=== PATIENT | female | born 1955 | race Hispanic/Latino ===

== ENCOUNTER 2022-05-29 10:20 | Observation (INO) | payer OTHER ==
[2022-05-26 10:09] LABS: SARS-CoV-2 Antigen Rapid Res Negative (Negative)
[2022-05-26 10:29] LABS: Specific Gravity 1.007 (1.005-1.030); Urine Bilirubin NEGATIVE (Negative); Urine Blood Negative (Negative); Urine Clarity Clear (Clear); Urine Color Colorless (Yellow); Urine Glucose NEGATIVE (Negative); Urine Protein NEGATIVE (Negative); Urine Urobilinogen Normal (Normal); Urine pH 6.5 (5.0-7.0)
[2022-05-26 10:30] LABS: Absolute Lymphocytes (CBC) 1.7 K/uL (0.7-4.9); Hematocrit 37.3 % (36.0-45.0); Lymphocytes % 35.7 % (15.3-44.8); MCV 90.6 fL (80-100); MPV 8.3 fL (7.6-11.3); RBC Red Blood Cell Count 4.12 M/uL (3.86-4.86)
[2022-05-26 10:31] LABS: Protime INR 0.94
[2022-05-26 10:34] LABS: Potassium 4.2 mmol/L (3.5-5.1)
[2022-05-29] MEDS ORDERED: dexAMETHasone 10 MG/ML VIAL ONE (10:23)
[2022-05-29] MEDS ORDERED: propofoL 200 MG/20 ML VIAL IV ONE (10:23)
[2022-05-29] MEDS ORDERED: FENTANYL CITR 100 MCG/2 ML ONE (10:23)
[2022-05-29] MEDS ORDERED: VECURONIUM 10 MG/VIAL IV ONE ×2 (10:24→15:16)
[2022-05-29] MEDS ORDERED: LIDOCAINE 2% MPF 5 ML VIAL ONE (10:24)
[2022-05-29] MEDS ORDERED: NS 0.9% VIAL 10 ML ONE ×2 (10:24→15:15)
[2022-05-29] MEDS ORDERED: KETOROLAC 30 MG/ML INJ ONE (10:24)
[2022-05-29] MEDS ORDERED: ONDANSETRON 4 MG/2 ML VIAL ONE (10:25)
[2022-05-29] MEDS ORDERED: MIDAZOLAM HCL 2 MG/2 ML INJ ONE (10:26)
[2022-05-29] MEDS ORDERED: Ringers Lactate 1,000 ML IV ONE ×3 (10:39→13:26)
[2022-05-29] MEDS ORDERED: SCOPOLAMINE HYDROBROMIDE PATCH TD ONE (10:40)
[2022-05-29] MEDS ORDERED: CEFAZOLIN SODIUM 2 GM/VIAL ONE (10:44)
[2022-05-29] MEDS ORDERED: NS 0.9% VIAL 20 ML ONE ×2 (11:02→12:39)
[2022-05-29] MEDS ORDERED: CEFAZOLIN SODIUM 1 GM/VIAL ONE (11:02)
[2022-05-29] MEDS ORDERED: BUPIVACAINE 0.25% PF 30 ML VIAL ONE (11:03)
[2022-05-29] MEDS ORDERED: NA CHLORIDE 0.9% 100 ML IV ONE (11:03)
[2022-05-29] MEDS ORDERED: NA CHLORIDE 0.9% 1,000 ML ONE (11:03)
[2022-05-29] MEDS ORDERED: VASOPRESSIN 20 UNIT/ML VIAL ONE (11:04)
[2022-05-29] MEDS ORDERED: GLYCOPYRROLATE 0.2 MG/ML SYR ONE (16:49)
[2022-05-29] MEDS ORDERED: NEOSTIGMINE 1 MG/ML -5 ML ONE (16:50)
[2022-05-29] MEDS ORDERED: ACETAMINOPHEN 500 MG TAB PO PRN (16:58)
[2022-05-29] MEDS ORDERED: PROMETHAZINE INJ 25 MG/ML AMP IV PRN (16:58)
[2022-05-29] MEDS ORDERED: ONDANSETRON 4 MG/2 ML VIAL IV PRN (16:58)
[2022-05-29] MEDS ORDERED: MEPERIDINE HCL 25 MG/ML SYR IV PRN (16:58)
[2022-05-29] MEDS ORDERED: HOME MED 1 EA UNK (Estradiol [Estrace] 42.5 GM Cream.Appl) VG SCH (17:00)
[2022-05-29] MEDS ORDERED: DRISDOL (VITAMIN D=ERGOCALCIFEROL) 50000 UNIT CAP PO SCH (17:00)
--- NOTE | 2022-05-29 17:04 | P.BOP ---
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
--- OUTSIDE RECORDS SUMMARY | 2022-05-29 17:22 | XMS REPORT | Continuity of Care Document ---
:1955 Author Organization [facility] t Address [address] [place] [address] Care Team Providers Name Role Phone MICHELLE LEDEZMA Primary Care Physician Unavailable JUDY REEVES Attending Clinician Unavailable CALLY GARCIA Attending Clinician Unavailable Cally Tolbert Attending Clinician Pob, [facility] Main Attending Clinician Unavailable Janel Ledbetter MD Attending Clinician JANEL LEDBETTER Attending Clinician Unavailable Doctor Unassigned, [place] Attending Clinician Unavailable Miguel Temple MD Attending Clinician MIGUEL TEMPLE Attending Clinician Unavailable MESERET LOU Attending Clinician Unavailable Meseret Lou NP Attending Clinician 2, [facility] Attending Clinician Unavailable Unknown, Attending Attending Clinician Unavailable UNKNOWN, ATTENDING Attending Clinician Unavailable RADIOLOGY Attending Clinician Unavailable Radiology Attending Clinician Unavailable Judy Reeves MD Attending Clinician Michelle Ledezma MD Attending Clinician Lab, [facility] Fam Pob I Attending Clinician Unavailable Kylie Dow Attending Clinician KYLIE MONTOYA Attending Clinician Unavailable DENYS, JAMA M Attending Clinician Unavailable MAGI HOWELL Attending Clinician Unavailable 1, [facility] Attending Clinician Unavailable Wilfrid MADDOX, Kayden Morin Attending Clinician MESERET LOU Admitting Clinician Unavailable DONALDO RITTER Admitting Clinician Unavailable MAGI HOWELL Admitting Clinician Unavailable Payers Payer Name Policy Type Policy Number Effective Date Expiration Date Rosa martinez [facility] [id number] 2020 [facility] 00:00:00 PPO [employer] MEDICARE [id number] 2019 00:00:00 Problems Condition Condition Condition Status Onset Resolution Last Treating Co mments Source Name Details Category Date Date Treatment Clinician Date Left Left Disease Active Univers axillary axillary 5-30 ity of swelling swelling 00:00: [place] 00 Medical Branch Change in Change in Disease Active Uni vers nail nail 5-30 [place] 00:[place] 00 [facility] [place] Chronic Chronic Disease Active Univers left left 5-30 ity of shoulder shoulder 00:00: [place] pain pain 00 Medical Branch Anasarca Anasarca Disease Active Unive rs 1-17 ity of 00:00: [place] [facility] Protein in Protein in Disease Active 2015-08 U nivers urine urine 0-19 ity of 00:00: [place] 00 Medical Branch No known No known Disease Metho di active active st problems problems Hospit a l Allergies, Adverse Reactions, Alerts Allergy Allergy Status Severity Reaction(s) Onset Inactive Treating Comm ents Source Name Type Date Date Clinician Codeine Propensi Active Nausea Univers ty to and/or 08 ity of adverse Vomiting 00:00: [place] reaction Medical s Branch Hydrocod Propensi Active Nausea Univer s one ty to and/or 808 ity of adverse Vomiting 00:00: [place] reaction 00 Medical s Branch CODEINE DRUG Active N/V Univers INGREDI 8-08 ity of 00:00: [place] 00 Medical Branch HYDROCOD DRUG Active N/V Univers ONE INGREDI 8-08 ity of 00:00: [place] 00 Medical Branch Codeine Propensi Active GI Methodi ty to Intolerance 08 st adverse 00:00: [facility]osp[facility] reaction 00 l s to drug Hydrocod Propensi Active GI Method i one ty to Intolerance 8-08 st adverse 00:00: Hospita reaction 00 l s to drug Family History Family Member Diagnosis Comments Start Date Stop Date Source Family member Colon cancer [facility] Family member Colon polyps [facility] Social History Social Habit Start Date Stop Date Quantity Comments Source Exposure to 2022-05-07 2022-05-17 Not sure [facility] SARS-CoV-2 00:00:00 16:16:00 [place] [facility] (event) [place] Alcohol intake 2022-05-17 2022-05-17 [facility] 00:00:00 00:00:00 non-drinker of [facility] alcohol (finding) [place] Tobacco use and 2016-02-08 2016-02-08 Smokeless tobacco Un iversity of exposure 00:00:00 00:00:00 non-user [facility] Sex Assigned At [address] [facility] 00:00:00 00:00:00 Smoking Status Start Date Stop Date Source Never smoked tobacco [facility] Medications Ordered Filled Start Stop Current Ordering Indication Dosage Frequency Signature Comments Components Source Medication Medication Date Date Medication? Clinician (SIG) Name Name azelastine 2021-08 Yes [id number] 1{spray Use 1 Univers 137 mcg 0-05 } [place] in ity of (0.1 %) 00:00: each [place] nasal spray 00 nostril in [facility] morning and 1 [place] in the evening. Use in each nostril as directed azelastine 2021-08 Yes [id number] 1{spray Use 1 Univers 137 mcg 0-05 } [place] in ity of (0.1 %) 00:00: each [place] nasal spray 00 nostril in [facility] morning and 1 [place] in the evening. Use in each nostril as directed iopamidol 2021- No [id number] 60mL 60 mL, U nivers (ISOVUE 04-16 Intravenou ity o f 370-500 mL) 08:45: 08:45 s, ONCE, 1 [place] injection 00 :00 dose, On Medica l 60 mL 04/16/22 Branch at 0345, Routine dicyclomine 2021- No 20mg 20 mg, Uni vers (BENTYL) 04-16 Intramuscu ity of injection 07:15: 06:51 [place], ONCE, [place] 20 mg 00 :00 1 dose, On Medical 04/16/22 Branch at 0215, Routine NaCl 0.9% No 1000mL at 999 Uni vers (NS) bolus 04-1604 mL/hr, ity of infusion 07:15: 08:13 1,000 mL, Mikal as 1,000 mL 00 :00 IV Medical Infusion, Branch ONCE, 1 dose, On 04/16/22 at 0215, MELANIA ondansetron 2021- No 4mg 4 mg, Slow Univers (ZOFRAN 04-16 IV Push, ity of (PF)) 06:45: 06:53 ONCE, 1 [place] injection 4 00 :00 dose, On Medi stephania mg [place] 04/16/22 Branch at 0145, MELANIA ondansetron 2021-0 Yes [id number] 4mg Take 1 Univers (ZOFRAN) 4 9-04 tablet by ity of mg tablet 00:00: mouth [place] 00 every 8 Medical (eight) Branch hours as needed for Nausea and Vomiting (N/V). ondansetron 2021-0 Yes [id number] 4mg Take 1 Univers (ZOFRAN) 4 9-04 tablet by ity of mg tablet 00:00: mouth [place] 00 every 8 Medical (eight) Branch hours as needed for Nausea and Vomiting (N/V). ondansetron 2-0 Yes [id number] 4mg Take 1 Univers (ZOFRAN) 4 9-04 tablet by ity of mg tablet 00:00: mouth [place] 00 every 8 Medical (eight) Branch hours as needed for Nausea and Vomiting (N/V). ondansetron 2-0 Yes [id number] 4mg Take 1 Univers (ZOFRAN) 4 9-04 tablet by ity of mg tablet 00:00: mouth [place] 00 every 8 Medical (eight) Branch hours as needed for Nausea and Vomiting (N/V). ondansetron 2022-0 Yes [id number] 4mg Take 1 Univers (ZOFRAN) 4 9-04 tablet by ity of mg tablet 00:00: mouth [place] 00 every 8 Medical (eight) Branch hours as needed for Nausea and Vomiting (N/V). ondansetron 2022-0 Yes [id number] 4mg Take 1 Univers (ZOFRAN) 4 -04 tablet by ity of mg tablet 00:00: mouth [place] 00 every 8 Medical (eight) Branch hours as needed for Nausea and Vomiting (N/V). omeprazole 2021- Yes [id number] 40mg Take 2 Univers 20 mg 9- 10-05 capsules ity of capsule 00:00: 04:59 by mouth [place] 00 :00 in the Medical morning Branch for 30 days. omeprazole 2021- Yes [id number] 40mg Take 2 Univers 20 mg 9-04 10-05 capsules ity of capsule 00:00: 04:59 by mouth [place] 00 :00 in the Medical morning Branch for 30 days. omeprazole 2021- Yes [id number] 40mg Take 2 Univers 20 mg 9-04 10-05 capsules ity of capsule 00:00: 04:59 by mouth [place] 00 :00 in the Medical morning Branch for 30 days. cefdinir 2021- Yes [id number] 300mg Take 1 U nivers 300 mg 04-16 09-15 capsule by ity of capsule 00:00: 04:59 mouth [place] 00 :00 every 12 Medical (twelve) Branch hours for 10 days. finerenone Yes Take by [facility] ers (KERENDIA 7-12 mouth. ity of ORAL) 13:05: [place] [address] Medical Branch cycloSPORIN Yes 1[drp] Place 1 U nivers E 0.05 % 7-12 Drop in ity of drops 13:05: left eye [place] 18 every 12 Medical (twelve) Branch hours. finerenone 2021- Yes Take by [facility] ers (KERENDIA 7-12 mouth. ity of ORAL) 13:05: [place] [address] Medical Branch cycloSPORIN 0 Yes 1[drp] Place 1 U nivers E 0.05 % 7-12 Drop in ity of drops 13:05: left eye [place] 18 every 12 Medical (twelve) Branch hours. finerenone 2021-0 Yes Take by [facility] ers (KERENDIA 7-12 mouth. ity of ORAL) 13:05: [place] [address] Medical Branch cycloSPORIN Yes 1[drp] Place 1 U nivers E 0.05 % 7-12 Drop in ity of drops 13:05: left eye [place] 18 every 12 Medical (twelve) Branch hours. finerenone 2021-0 Yes Take by Univ ers (KERENDIA 7-12 mouth. ity of ORAL) 13:05: [place] [address] Medical Branch cycloSPORIN 2021-0 Yes 1[drp] Place 1 U nivers E 0.05 % 7-12 Drop in ity of drops 13:05: left eye [place] 18 every 12 Medical (twelve) Branch hours. finerenone 2021-0 Yes Take by Univ ers (KERENDIA 7-12 mouth. ity of ORAL) 13:05: [place] [address] Medical Branch cycloSPORIN 2021-0 Yes 1[drp] Place 1 U nivers E 0.05 % 7-12 Drop in ity of drops 13:05: left eye [place] 18 every 12 Medical (twelve) Branch hours. finerenone 2021-0 Yes Take by [facility] ers (KERENDIA 7-12 mouth. ity of ORAL) 13:05: [place] [address] Medical Branch cycloSPORIN 2021-0 Yes 1[drp] Place 1 U nivers E 0.05 % 7-12 Drop in ity of drops 13:05: left eye [place] 18 every 12 Medical (twelve) Branch hours. finerenone 2021-0 Yes Take by [facility] ers (KERENDIA 7-12 mouth. ity of ORAL) 13:05: [place] [address] Medical Branch cycloSPORIN 2021-0 Yes 1[drp] Place 1 U nivers E 0.05 % 7-12 Drop in ity of drops 13:05: left eye [place] 18 every 12 Medical (twelve) Branch hours. finerenone 2021-0 Yes Take by Univ ers (KERENDIA 7-12 mouth. ity of ORAL) 13:05: [place] [address] Medical Branch cycloSPORIN 2021-0 Yes 1[drp] Place 1 U nivers E 0.05 % 7-12 Drop in ity of drops 13:05: left eye [place] 18 every 12 Medical (twelve) Branch hours. finerenone 2021-0 Yes Take by Univ ers (KERENDIA 7-12 mouth. ity of ORAL) 13:05: [place] [address] Medical Branch cycloSPORIN 2021-0 Yes 1[drp] Place 1 U nivers E 0.05 % 7-12 Drop in ity of drops 13:05: left eye [place] [address] every 12 Medical (twelve) Branch hours. finerenone 2022-0 Yes Take by [facility] ers (KERENDIA 7-12 mouth. ity of ORAL) 13:05: [place] [address] Medical Branch cycloSPORIN 2021-0 Yes 1[drp] Place 1 U nivers E 0.05 % 7-12 Drop in ity of drops 13:05: left eye [place] 18 every 12 Medical (twelve) Branch hours. finerenone 2021-0 Yes Take by [facility] ers (KERENDIA 7-12 mouth. ity of ORAL) 13:05: [place] [address] Medical Branch cycloSPORIN 2021-0 Yes 1[drp] Place 1 U nivers E 0.05 % 7-12 Drop in ity of drops 13:05: left eye [place] 18 every 12 Medical (twelve) Branch hours. finerenone 2021-0 Yes Take by [facility] ers (KERENDIA 7-12 mouth. ity of ORAL) 13:05: [place] [address] Medical Branch cycloSPORIN 2021-0 Yes 1[drp] Place 1 U nivers E 0.05 % 7-12 Drop in ity of drops 13:05: left eye [place] 18 every 12 Medical (twelve) Branch hours. finerenone 2021-0 Yes Take by [facility] ers (KERENDIA 7-12 mouth. ity of ORAL) 13:05: [place] [address] Medical Branch cycloSPORIN 2021-0 Yes 1[drp] Place 1 U nivers E 0.05 % 7-12 Drop in ity of drops 13:05: left eye [place] 18 every 12 Medical (twelve) Branch hours. finerenone 2021-0 Yes Take by [facility] ers (KERENDIA 7-12 mouth. ity of ORAL) 13:05: [place] [address] Medical Branch cycloSPORIN 2021-0 Yes 1[drp] Place 1 U nivers E 0.05 % 7-12 Drop in ity of drops 13:05: left eye [place] 18 every 12 Medical (twelve) Branch hours. pravastatin 2021-0 Yes [id number] 10mg Take 1 Univers 10 mg 4-05 tablet by ity of tablet 00:00: mouth at [place] 00 bedtime. Medical Branch pravastatin 2-0 Yes [id number] 10mg Take 1 Univers 10 mg 4-05 tablet by ity of tablet 00:00: mouth at [place] 00 bedtime. Medical Branch pravastatin 2-0 Yes [id number] 10mg Take 1 Univers 10 mg 4-05 tablet by ity of tablet 00:00: mouth at [place] [address] bedtime. Medical Branch pravastatin 2021-0 Yes [id number] 10mg Take 1 Univers 10 mg 4-05 tablet by ity of tablet 00:00: mouth at [place] [address] bedtime. Medical Branch pravastatin 2021-0 Yes [id number] 10mg Take 1 Univers 10 mg 4-05 tablet by ity of tablet 00:00: mouth at [place] [address] bedtime. [facility] Branch pravastatin 2021-0 Yes [id number] 10mg Take 1 Univers 10 mg 4-05 tablet by ity of tablet 00:00: mouth at [place] [address] bedtime. Medical Branch pravastatin 2021-0 Yes [id number] 10mg Take 1 Univers 10 mg 4-05 tablet by ity of tablet 00:00: mouth at [place] [address] bedtime. [facility] Branch pravastatin 0 Yes [id number] 10mg Take 1 Univers 10 mg 4-05 tablet by ity of tablet 00:00: mouth at [place] [address] bedtime. [facility] Branch pravastatin 0 Yes [id number] 10mg Take 1 Univers 10 mg 4-05 tablet by ity of tablet 00:00: mouth at [place] [address] bedtime. Medical Branch pravastatin 0 Yes [id number] 10mg Take 1 Univers 10 mg 4-05 tablet by ity of tablet 00:00: mouth at [place] [address] bedtime. [facility] Branch pravastatin 0 Yes [id number] 10mg Take 1 Univers 10 mg 4-05 tablet by ity of tablet 00:00: mouth at [place] [address] bedtime. [facility] Branch pravastatin 2021-0 Yes [id number] 10mg Take 1 Univers 10 mg 4-05 tablet by ity of tablet 00:00: mouth at [place] [address] bedtime. [facility] Branch pravastatin 2021-0 Yes [id number] 10mg Take 1 Univers 10 mg 4-05 tablet by ity of tablet 00:00: mouth at [place] [address] bedtime. [facility] Branch pravastatin 2021-0 Yes [id number] 10mg Take 1 Univers 10 mg 4-05 tablet by ity of tablet 00:00: mouth at [place] [address] bedtime. [facility] Branch ergocalcife 2020-0 Yes [id number] Univ ers rol, 7-06 50,000 ity of vitamin d2, 08:58: Units by [place] (VITAMIN 13 mouth once Medic al D2) 1,250 every Branch mcg (50,000 month. unit) capsule ergocalcife 2020-0 Yes [id number] Take [place] [facility], 7- 50,000 ity of vitamin d2, 08:58: Units by [place] (VITAMIN 13 mouth once Medic al D2) 1,250 every Branch mcg (50,000 month. unit) capsule ergocalcife 2020-0 Yes [id number] Take [facility], 7- 50,000 ity of vitamin d2, 08:58: Units by [place] (VITAMIN 13 mouth once Medic al D2) 1,250 every Branch mcg (50,000 month. unit) capsule ergocalcife 2020-0 Yes [id number] Take [place] [facility], 7- 50,000 ity of vitamin d2, 08:58: Units by [place] (VITAMIN 13 mouth once Medic al D2) 1,250 every Branch mcg (50,000 month. unit) capsule ergocalcife 2020-0 Yes [id number] Take [facility], 7- 50,000 ity of vitamin d2, 08:58: Units by [place] (VITAMIN 13 mouth once Medic al D2) 1,250 every Branch mcg (50,000 month. unit) capsule ergocalcife 2020-0 Yes [id number] Take [facility], 7- 50,000 ity of vitamin d2, 08:58: Units by [place] (VITAMIN 13 mouth once Medic al D2) 1,250 every Branch mcg (50,000 month. unit) capsule ergocalcife 2020-0 Yes [id number] Take [place] [facility], 7- 50,000 ity of vitamin d2, 08:58: Units by [place] (VITAMIN 13 mouth once Medic al D2) 1,250 every Branch mcg (50,000 month. unit) capsule ergocalcife 2020-0 Yes [id number] Take [place] [facility], 7- 50,000 ity of vitamin d2, 08:58: Units by [place] (VITAMIN 13 mouth once Medic al D2) 1,250 every Branch mcg (50,000 month. unit) capsule ergocalcife 2020-0 Yes [id number] Take [place] [facility], 7- 50,000 ity of vitamin d2, 08:58: Units by [place] (VITAMIN 13 mouth once Medic al D2) 1,250 every Branch mcg (50,000 month. unit) capsule ergocalcife 2020-0 Yes [id number] Take [facility], 7- 50,000 ity of vitamin d2, 08:58: Units by [place] (VITAMIN 13 mouth once Medic al D2) 1,250 every Branch mcg (50,000 month. unit) capsule ergocalcife 2020-0 Yes [id number] Take [facility], 7- 50,000 ity of vitamin d2, 08:58: Units by [place] (VITAMIN 13 mouth once Medic al D2) 1,250 every Branch mcg (50,000 month. unit) capsule ergocalcife 2020-0 Yes [id number] Take [place] [facility], 7- 50,000 ity of vitamin d2, 08:58: Units by [place] (VITAMIN 13 mouth once Medic al D2) 1,250 every Branch mcg (50,000 month. unit) capsule ergocalcife 0 Yes [id number] Take [place] [facility], 7- 50,000 ity of vitamin d2, 08:58: Units by [place] (VITAMIN 13 mouth once Medic al D2) 1,250 every Branch mcg (50,000 month. unit) capsule ergocalcife 0 Yes [id number] Take [place] [facility], 7- 50,000 ity of vitamin d2, 08:58: Units by [place] (VITAMIN 13 mouth once Medic al D2) 1,250 every Branch mcg (50,000 month. unit) capsule famotidine 2019-0 Yes 20mg QD Take 20 mg M ethodi (PEPCID) 20 2-[address] MG tablet 11:00: daily. Hospit a 37 l aspirin 2020-0 Yes 81mg QD Take 81 mg Meth lanny (ECOTRIN) 2-[address] 81 MG 11:00: daily. Hospita enteric 37 l coated tablet predniSONE 2020-0 Yes 25mg Q2D Take 25 mg M ethodi (DELTASONE) 2-[address] 20 mg 11:00: every Hospita tablet 37 other day. l ergocalcife 2018- Yes [id number] Take Meth lanny rol 2-26 50,[address] (VITAMIN 00:00: Units by Hospi ta D2) 50,000 00 mouth. l unit capsule aspirin 2019-0 Yes 81mg Take 81 mg Univ ers (ASPIRIN 8-08 by mouth ity of LOW DOSE) 13:51: daily. [place] 81 mg EC 50 Medical tablet Branch famotidine 2019-0 Yes 20mg Take 20 mg U nivers (PEPCID AC) 8-08 by mouth ity of 20 mg 13:51: once now. [place] tablet 50 Medical Branch aspirin 2019-0 Yes 81mg Take 81 mg Univ ers (ASPIRIN 8-08 by mouth ity of LOW DOSE) 13:51: daily. [place] 81 mg EC 50 Medical tablet Branch famotidine 2019-0 Yes 20mg Take 20 mg U nivers (PEPCID AC) 8-08 by mouth ity of 20 mg 13:51: once now. [place] tablet 50 Medical Branch aspirin 2019-0 Yes 81mg Take 81 mg Univ ers (ASPIRIN 8-08 by mouth ity of LOW DOSE) 13:51: daily. [place] 81 mg EC 50 Medical tablet Branch famotidine 2019-0 Yes 20mg Take 20 mg U nivers (PEPCID AC) 8-08 by mouth ity of 20 mg 13:51: once now. [place] tablet 50 Medical Branch aspirin 2019-0 Yes 81mg Take 81 mg Univ ers (ASPIRIN 8-08 by mouth ity of LOW DOSE) 13:51: daily. [place] 81 mg EC 50 Medical tablet Branch famotidine 2019-0 Yes 20mg Take 20 mg U nivers (PEPCID AC) 8-08 by mouth ity of 20 mg 13:51: once now. [place] tablet 50 Medical Branch aspirin 2019-0 Yes 81mg Take 81 mg Univ ers (ASPIRIN 8-08 by mouth ity of LOW DOSE) 13:51: daily. [place] 81 mg EC 50 Medical tablet Branch famotidine 2019-0 Yes 20mg Take 20 mg U nivers (PEPCID AC) 8-08 by mouth ity of 20 mg 13:51: once now. [place] tablet 50 Medical Branch aspirin 2019-0 Yes 81mg Take 81 mg Univ ers (ASPIRIN 8-08 by mouth ity of LOW DOSE) 13:51: daily. [place] 81 mg EC 50 Medical tablet Branch famotidine 2019-0 Yes 20mg Take 20 mg U nivers (PEPCID AC) 8-08 by mouth ity of 20 mg 13:51: once now. [place] tablet 50 Medical Branch aspirin 2019-0 Yes 81mg Take 81 mg Univ ers (ASPIRIN 8-08 by mouth ity of LOW DOSE) 13:51: daily. [place] 81 mg EC 50 Medical tablet Branch famotidine 2019-0 Yes 20mg Take 20 mg U nivers (PEPCID AC) 8-08 by mouth ity of 20 mg 13:51: once now. [place] tablet 50 Medical Branch aspirin 2019-0 Yes 81mg Take 81 mg Univ ers (ASPIRIN 8-08 by mouth ity of LOW DOSE) 13:51: daily. [place] 81 mg EC 50 Medical tablet Branch famotidine 2019-0 Yes 20mg Take 20 mg U nivers (PEPCID AC) 8-08 by mouth ity of 20 mg 13:51: once now. [place] tablet 50 Medical Branch aspirin 2019-0 Yes 81mg Take 81 mg Univ ers (ASPIRIN 8-08 by mouth ity of LOW DOSE) 13:51: daily. [place] 81 mg EC 50 Medical tablet Branch famotidine 2019-0 Yes 20mg Take 20 mg U nivers (PEPCID AC) 8-08 by mouth ity of 20 mg 13:51: once now. [place] tablet 50 Medical Branch aspirin 2019-0 Yes 81mg Take 81 mg Univ ers (ASPIRIN 8-08 by mouth ity of LOW DOSE) 13:51: daily. [place] 81 mg EC 50 Medical tablet Branch famotidine 2019-0 Yes 20mg Take 20 mg U nivers (PEPCID AC) 8-08 by mouth ity of 20 mg 13:51: once now. [place] tablet 50 Medical Branch aspirin 2019-0 Yes 81mg Take 81 mg Univ ers (ASPIRIN 8-08 by mouth ity of LOW DOSE) 13:51: daily. [place] 81 mg EC 50 Medical tablet Branch famotidine 2019-0 Yes 20mg Take 20 mg U nivers (PEPCID AC) 8-08 by mouth ity of 20 mg 13:51: once now. [place] tablet 50 Medical Branch aspirin 2019-0 Yes 81mg Take 81 mg Univ ers (ASPIRIN 8-08 by mouth ity of LOW DOSE) 13:51: daily. [place] 81 mg EC 50 Medical tablet Branch famotidine 2019-0 Yes 20mg Take 20 mg U nivers (PEPCID AC) 8-08 by mouth ity of 20 mg 13:51: once now. [place] tablet 50 Medical Branch aspirin 2019-0 Yes 81mg Take 81 mg Univ ers (ASPIRIN 8-08 by mouth ity of LOW DOSE) 13:51: daily. [place] 81 mg EC 50 Medical tablet Branch famotidine 2019-0 Yes 20mg Take 20 mg U nivers (PEPCID AC) 8-08 by mouth ity of 20 mg 13:51: once now. [place] tablet 50 Medical Branch aspirin 2019-0 Yes 81mg Take 81 mg Univ ers (ASPIRIN 8-08 by mouth ity of LOW DOSE) 13:51: daily. [place] 81 mg EC 50 Medical tablet Branch famotidine 2019-0 Yes 20mg Take 20 mg U nivers (PEPCID AC) 8-08 by mouth ity of 20 mg 13:51: once now. [place] tablet 50 Medical Branch Immunizations Ordered Filled Immunization Date Status Comments [facility] e Immunization Name Name SARS-COV-2 COVID-19 2020-10-12 Completed Unive rsity of MODERNA VACCINE 00:00:00 [facility] ical Branch SARS-COV-2 COVID-19 2020-10-12 Completed Unive rsity of MODERNA VACCINE 00:00:00 [facility] ical Branch SARS-COV-2 COVID-19 2020-10-12 Completed Unive rsity of MODERNA VACCINE 00:00:00 [facility] ical Branch SARS-COV-2 COVID-19 2020-10-12 Completed Unive rsity of MODERNA VACCINE 00:00:00 [facility] ical Branch SARS-COV-2 COVID-19 2020-10-12 Completed Unive rsity of MODERNA 12+ YRS 00:00:00 [facility] ical VACCINE Branch SARS-COV-2 COVID-19 2020-10-12 Completed Unive rsity of MODERNA 12+ YRS 00:00:00 [facility] ical VACCINE Branch SARS-COV-2 COVID-19 2020-10-12 Completed Unive rsity of MODERNA 12+ YRS 00:00:00 [place] Med ical VACCINE Branch SARS-COV-2 COVID-19 2020-10-12 Completed Unive rsity of MODERNA 12+ YRS 00:00:00 [facility] ical VACCINE Branch SARS-COV-2 COVID-19 2020-10-12 Completed Unive rsity of MODERNA 12+ YRS 00:00:00 [facility] ical VACCINE Branch SARS-COV-2 COVID-19 2020-10-12 Completed Unive rsity of MODERNA 12+ YRS 00:00:00 [place] Med ical VACCINE Branch SARS-COV-2 COVID-19 2020-10-12 Completed Unive rsity of MODERNA VACCINE 00:00:00 [place] Med ical Branch SARS-COV-2 COVID-19 2020-10-12 Completed Unive rsity of MODERNA VACCINE 00:00:00 [place] Med ical Branch SARS-COV-2 COVID-19 2020-10-12 Completed Unive rsity of MODERNA VACCINE 00:00:00 [place] Med ical Branch SARS-COV-2 COVID-19 2020-10-12 Completed Unive rsity of MODERNA VACCINE 00:00:00 [place] Med ical Branch SARS-COV-2 COVID-19 2020-09-14 Completed Unive rsity of MODERNA VACCINE 00:00:00 [place] Med ical Branch SARS-COV-2 COVID-19 2020-09-14 Completed Unive rsity of MODERNA VACCINE 00:00:00 [place] Med ical Branch SARS-COV-2 COVID-19 2020-09-14 Completed Unive rsity of MODERNA VACCINE 00:00:00 [place] Med ical Branch SARS-COV-2 COVID-19 2020-09-14 Completed Unive rsity of MODERNA VACCINE 00:00:00 [place] Med ical Branch SARS-COV-2 COVID-19 2020-09-14 Completed Unive rsity of MODERNA 12+ YRS 00:00:00 [place] Med ical VACCINE Branch SARS-COV-2 COVID-19 2020-09-14 Completed Unive rsity of MODERNA 12+ YRS 00:00:00 [place] Med ical VACCINE Branch SARS-COV-2 COVID-19 2020-09-14 Completed Unive rsity of MODERNA 12+ YRS 00:00:00 [place] Med ical VACCINE Branch SARS-COV-2 COVID-19 2020-09-14 Completed Unive rsity of MODERNA 12+ YRS 00:00:00 [place] Med ical VACCINE Branch SARS-COV-2 COVID-19 2020-09-14 Completed Unive rsity of MODERNA 12+ YRS 00:00:00 [place] Med ical VACCINE Branch SARS-COV-2 COVID-19 2020-09-14 Completed Unive rsity of MODERNA 12+ YRS 00:00:00 [facility] ical VACCINE Branch SARS-COV-2 COVID-19 2020-09-14 Completed Unive rsity of MODER[place] VACCINE 00:00:00 [place] [facility] ical Branch SARS-COV-2 COVID-19 2020-09-14 Completed Unive rsity of MODERNA VACCINE 00:00:00 [facility] ical Branch SARS-COV-2 COVID-19 2020-09-14 Completed Unive rsity of [place]ERNA VACCINE 00:00:00 [facility] ical Branch SARS-COV-2 COVID-19 2020-09-14 Completed Unive rsity of MODERNA VACCINE 00:00:00 [facility] Vital Signs Vital Name Observation Time Observation Value Comments Source Systolic blood 2022-05-17 21:26:00 114 mm[Hg] Univer sity of pressure [facility] Diastolic blood 2022-05-17 21:26:00 69 mm[Hg] Unive rsity of pressure [facility] Heart rate 2022-05-17 21:26:00 80 /min [facility] Body temperature 2022-05-17 21:26:00 36.61 Sheila [facility] Body height 2022-05-17 21:26:00 157.5 cm [facility] Body weight 2022-05-17 21:26:00 56.11 kg [facility] BMI 2022-05-17 21:26:00 22.63 kg/m2 [facility] Oxygen saturation in 2022-05-17 21:26:00 97 /min [facility] Arterial blood by [facility] Pulse oximetry Branch Systolic blood 2022-04-16 09:14:00 116 mm[Hg] Univer sity of pressure [facility] Diastolic blood 2022-04-16 09:14:00 68 mm[Hg] Unive rsity of pressure [facility] Heart rate 2022-04-16 09:14:00 90 /min Universi ty [facility] Body temperature 2022-04-16 09:14:00 36.89 Sheila [facility] Respiratory rate 2022-04-16 09:14:00 15 /min [facility] Oxygen saturation in 2022-04-16 09:14:00 100 /min University of Arterial blood by [facility] Pulse oximetry Branch Body height 2022-04-16 06:13:00 157.5 cm Universi ty [facility] Body weight 2022-04-16 06:13:00 57.153 kg Universi ty [facility] BMI 2022-04-16 06:13:00 23.05 kg/m2 Universi ty [facility] Systolic blood 2022-02-21 18:07:00 122 mm[Hg] Univer sity of pressure [facility] Diastolic blood 2022-02-21 18:07:00 57 mm[Hg] Unive rsity [facility] Heart rate 2022-02-21 18:07:00 71 /min [facility] Body temperature 2022-02-21 18:07:00 36.94 Sheila [facility] Respiratory rate 2022-02-21 18:07:00 16 /min Univ [facility] Body height 2022-02-21 18:07:00 157.5 cm Universi [facility] Body weight 2022-02-21 18:07:00 57.335 kg Universi ty [facility] BMI 2022-02-21 18:07:00 23.12 kg/m2 [facility] Oxygen saturation in 2022-02-21 18:07:00 98 /min [facility] Arterial blood by [facility] Pulse oximetry [place] Procedures Procedure Date / Time Performed Performing Clinician Sour e PHYSICIAN ORDERS 2022-05-10 05:01:00 Doctor Unassigned, No Unive [facility] Name [facility] CT ABDOMEN PELVIS W 2022-04-16 07:53:16 Meseret Lou [facility] CONTRAST [facility] XR CHEST 1 VW 2022-04-16 07:33:34 Meseret Lou [facility] LIPASE 2022-04-16 06:44:00 Meseret Lou [facility] TROPONIN I 2022-04-16 06:44:00 Meseret Lou [facility] COMP. METABOLIC PANEL 2022-04-16 06:44:00 Meseret Lou Unive [facility] ([id number]) [facility] CBC WITH DIFF 2022-04-16 06:44:00 Meseret Lou [facility] URINALYSIS 2022-04-16 06:44:00 Meseret Lou [facility] N-TERMINAL PRO-BNP 2022-04-16 06:44:00 [facility] Branch COVID-19 (ID NOW RAPID 2022-04-16 06:44:00 Meseret Lou [facility] TESTING) Medical Branch NOTICE OF PRIVACY 2022-04-16 06:11:04 Doctor Unassigned, No Univ ersity [facility] PRACTICES Name Medical Branch CONSENT/REFUSAL FOR 2022-04-16 06:09:59 Doctor Unassigned, No [facility] Name Medical Branch TREATMENT PHYSICIAN ORDERS 2022-03-22 05:01:00 Doctor Unassigned, No [facility] Branch CONSENT/REFUSAL FOR 2022-03-01 15:45:28 Doctor Unassigned, No [facility] DIAGNOSIS AND Name Medical Branch TREATMENT ASSIGNMENT OF BENEFITS 2022-03-01 15:45:09 Doctor Unassigned, No [facility] Name Medical Branch MEDICAL 2022-02-21 05:01:00 Doctor Unassigned, No [facility] RELEASE/CLEARANCE Name Medical Branch FORMS Plan of Care Planned Activity Planned Date Details Comments Source Future Scheduled 2022-05-17 HEPATITIS B VACCINES Met [facility] Test 16:17:09 (1 of 3 - 3-dose series) [code = HEPATITIS B VACCINES (1 of 3 - 3-dose series)] Future Scheduled 2022-05-17 COVID-19 VACCINE (#1) [facility] Test 16:17:09 [code = COVID-19 VACCINE (#1)] Future Scheduled 2022-05-17 Hepatitis C screening [facility] Test 16:17:09 (procedure) [code = 690722929] Future Scheduled 2022-05-[address] [facility] Test 16:17:09 SCREENING [code = BREAST CANCER SCREENING] Future Scheduled 2022-05-17 COLONOSCOPY SCREENING Me [facility] Test 16:17:09 [code = COLONOSCOPY SCREENING] Future Scheduled 2022-05-17 SHINGLES VACCINES (1 Met [facility] Test 16:17:09 of 2) [code = SHINGLES VACCINES (1 of 2)] Future Scheduled 2022-05-17 65+ [facility] Test 16:17:09 VACCINE (1 - PCV) [code = 65+ PNEUMOCOCCAL VACCINE (1 - PCV)] Future Scheduled 2022-05-17 INFLUENZA VACCINE Method [facility] Test 16:17:09 [code = INFLUENZA VACCINE] Encounters Start End Encounter Admission Attending Care Care Encounter Source Date/Time Date/Time Type Type Clinicians Facility Department ID 2023-02-21 2023-02-21 Outpatient R LEANDRO, [facility] [id number] Univers 10:00:00 10:00:00 JUDY claudio o [facility] 2023-02-21 2023-02-21 Outpatient R LEANDRO, [facility] [id number] Univers 10:00:00 10:00:00 BESSHILDAANJANA claudio o [facility] 2022-05-17 2022-05-17 [facility] [id number] Univers 16:30:00 16:55:50 CALLY snyder [facility] 2022-05-17 2022-05-17 Office [facility] 1.2.840.114 [id number] Univers 16:30:00 16:55:50 Visit Cally Alcaraz [facility] 350.1.13.10 i ty of [place] 4.2.7.2.686 Mikal as PRANAY?BLEA [phone] Ny naima BUIEY [address] [place] MEDICAL OFFICE BUILDING 2022-05-10 2022-05-10 Pot Operator Dieudonne, Cyndy Lab Main [facility] 1.2.8 40.114 [id number] Univers 15:00:00 15:15:00 Visit Janel Ledbetter [place] 350.1.13.10 ity [facility] 4.2.7.2.[place] [phone] Ny naima COLLAZO 353 Branch BUILDING 2022-05-10 2022-05-10 Outpatient R DENISE [facility] [id number] Univers 15:00:00 15:00:00 JANEL snyder [facility] 2022-05-10 2022-05-10 Orders Doctor CHRISTIAN 1.2.840.114 [id number] Univers 00:00:00 00:00:00 Only Unassigned, MARLA 350.1.13.10 ity of [place] [facility] 4.2.7.2.686 Mikal as [phone] [facility] [address] [place] 2022-05-02 2022-05-02 Pot Operator Dieudonne, Adc Lab Main [facility] 1.2.8 40.114 [id number] Univers 10:00:00 10:15:00 Visit Danealan Miguel VERDUGO 350.1.13.10 ity [facility] [place] [phone] Ny dical NAL [address] [place] [address] 2022-05-02 2022-05-02 Outpatient R MAVERICK [facility] [id number] Univers 10:00:00 10:00:00 MIGUEL snyder [facility] 2022-04-16 2022-04-16 Emergency X [facility] ERT [id number] Univers 01:20:00 04:46:00 MESERET snyder [facility] 2022-04-16 2022-04-16 Emergency [facility] 1.2.938.114 [id number] Univers 01:20:00 04:46:00 Meseret VERDUGO 350.1.13.10 ity of [place].2.7.2.[place] [phone] [facility] [address] [place] 2022-03-22 2022-03-22 Pot Operator 2, Adc Lab [facility] 1.2.840.114 [id number] Univers 10:30:00 10:45:00 Visit Unknown, Dilia VERDUGO 350.1.13.1 0 ity of [facility] [place].2.[place].2.[place] [id number] Ny dical NAL [address] [facility] 2022-03-22 2022-03-22 Outpatient R UNKNOWN, [facility] [id number] Univers 10:30:00 10:30:00 ATTENDING itoliver [facility] 2022-03-22 2022-03-22 Orders Doctor CHRISTIAN 1.2.840.114 [id number] Univers 00:00:00 00:00:00 Only Unassigned, MARLA 350.1.13.10 ity of [place] [facility] 4.2.7.2.686 Mikal as [phone] [facility] 009 Branch 2022-03-01 2022-03-01 Outpatient R RADIOLOGY [facility] [id number] Univers 10:46:10 23:59:00 ity of [facility] 2022-03-01 2022-03-01 Hospital Radiology [facility] 1.2.840.114 [id number] Univers 10:40:00 23:59:00 Encounter LUCINA 350.1.13.10 ity [facility] 4.2.7.2.[place] [phone] [facility] 800 Branch 2022-03-01 2022-03-01 Outpatient R RADIOLOGY [facility] [id number] Univers 00:00:00 00:00:00 ity of [facility] 2022-03-01 2022-03-01 Orders Doctor ANAHI 1.2.840.114 [id number] Univers 00:00:00 00:00:00 Only Unassigned, MARLA 350.1.13.10 [facility] 4.2.7.2.686 Mikal as [phone] [facility] [address] [place] 2022-02-22 2022-02-22 Pot Operator 2, Adc Lab [facility] 1.2.840.114 [id number] Univers 09:45:00 10:00:00 Visit Judy Reeves 350.1.13.10 ity [facility] 4.2.7.2.686 [place] [facility] [phone] Ny dic[address] 2022-02-22 2022-02-22 Outpatient R LEANDRO, [facility] [id number] Univers 09:45:00 09:45:00 JUDY snyder o [facility] 2022-02-21 2022-02-21 Outpatient R LEANDRO, [facility] [id number] Univers 13:00:00 13:25:13 JUDY snyder o [facility] 2022-02-21 2022-02-21 Outpatient R LEANDRO, [facility] [id number] Univers 13:00:00 13:25:13 JUDY snyder o [facility] 2022-02-21 2022-02-21 Office Leandro, [facility] 1.2.840.114 [id number] Univers 13:00:00 13:25:13 Visit Corwinanjana VERDUGO 350.1.13.10 ity of [facility] 4.2.7.[place] [id number] [address] 2022-02-21 2022-02-21 Orders Doctor ANAHI 1.2.840.114 [id number] Univers 00:00:00 00:00:00 Only Unassigned, MARLA 350.1.13.10 ity of [place] [facility] 4.2.7.2.686 Mikal as [phone] [address] 2022-02-21 2022-02-21 Telephone [facility] 1.2.860.630 [id number] Univers 00:00:00 00:00:00 Judy LUCINA 350.1.13.10 ity of [place] 4.2.7.2.[place] [phone] [address] 2022-02-07 2022-02-07 Orders Doctor ANAHI 1.2.840.114 [id number] Univers 00:00:00 00:00:00 Only Unassigned, MARLA 350.1.13.10 ity of [place] [facility] 4.2.7.2.686 Mikal as [phone] [address] 2022-01-25 2022-01-25 Outpatient [facility] [id number] Univers 08:00:00 08:36:36 CALLY ity of [facility] 2022-01-25 2022-01-25 Office [facility] 1.2.840.114 [id number] Univers 08:00:00 08:36:36 Visit Cally Kieran [facility] 350.1.13.10 i ty of [facility] 4.2.7.2.686 Mikal as PRANAY?BLEA [phone] [facility] 0[facility] OFFICE [facility] 2022-01-17 2022-01-17 Pot Operator Dieudonne, Cyndy Lab Main [facility] 1.2.8 40.114 [id number] Univers 10:45:00 11:00:00 Visit Janel Ledbetter 350.1.13.10 ity of [facility] [place].2.7.2.[place] [phone] [facility] 353 [facility] 2022-01-17 2022-01-17 Outpatient R DENISE [facility] [id number] Univers 10:45:00 10:45:00 MANAF ity [facility] 2022-01-17 2022-01-17 Orders Doctor CHRISTIAN 1.2.840.114 [id number] Univers 00:00:00 00:00:00 Only Unassigned, MARLA 350.1.13.10 ity of [place] [facility] 4.2.7.2.686 Mikal as [phone] [address] 2021-11-14 2021-11-14 Refshirley [facility] 1.2.840.114 [id number] Univers 00:00:00 00:00:00 Judy CHRISNEY 350.1.13.10 ity of [place] 4.2.7.2.[place] [phone] [facility] 059 [facility] 2021-09-26 2021-09-26 Telephone [facility] 1.2.376.551 [id number] Univers 00:00:00 00:00:00 [facility] 350.1.13.10 it y of [place] 4.2.7.2.686 Mikal as PRANAY?BLEA [phone] [facility] 044 [facility] OFFICE [facility] 2021-09-20 2021-09-20 Pot Operator Cyndy Bro Lab Main [facility] 1.2.8 40.114 [id number] Univers 10:30:00 10:45:00 Visit Janel Ledbetter 350.1.13.10 ity of [facility] 4.2.7.2.[place] [phone] [facility] NAL [address] [facility] 2021-09-20 2021-09-20 Outpatient R DENISE [facility] [id number] Univers 10:30:00 10:30:00 MANAF ity [facility] 2021-09-20 2021-09-20 Orders Doctor CHRISTIAN 1.2.840.114 [id number] Univers 00:00:00 00:00:00 Only Unassigned, MARLA 350.1.13.10 ity of [place] [facility] 4.2.7.2.686 Mikal as [phone] [address] 2021-09-12 2021-09-12 Orders Doctor ANAHI 1.2.840.114 [id number] Univers 00:00:00 00:00:00 Only Unassigned, MARLA 350.1.13.10 ity of [place] [facility] 4.2.7.2.686 Mikal as [phone] [address] 2021-06-15 2021-06-15 Pot Operator Dieudonne, Adc Lab Main [facility] 1.2.8 40.114 [id number] Univers 09:04:38 09:19:38 Visit Miguel Temple 350.1.13.10 ity of [place] 4.2.7.2.[place] [phone] Ny dical NAL 353 [facility] 2021-06-15 2021-06-15 Outpatient [facility] [id number] [facility] 09:00:00 09:00:00 MIGUEL snyder [facility] 2021-06-15 2021-06-15 Orders Doctor CHRISTIAN 1.2.840.114 [id number] [facility] 00:00:00 00:00:00 Only Unassigned, MARLA 350.1.13.10 ity of [place] [facility] 4.2.7.2.686 Mikal as [phone] [address] 2021-04-12 2021-04-12 Outpatient R DENISE [facility] [id number] Univers 09:45:00 09:45:00 MANAF ity [facility] 2021-04-12 2021-04-12 Pot Operator Dieudonne, Adc Lab Main [facility] 1.2.8 40.114 [id number] Univers 09:02:59 09:17:59 Visit Janel Ledbetter 350.1.13.10 ity of [place].2.7.2.[place] [phone] Ny dical nal 353 [facility] 2021-04-12 2021-04-12 Orders Doctor ANAHI 1.2.840.114 [id number] Univers 00:00:00 00:00:00 Only Unassigned, MARLA 350.1.13.10 ity of [place] [facility] 4.2.7.2.686 Mikal as [phone] [facility] [address] [place] 2021-03-18 2021-03-18 Out[facility] [id number] Univers 00:00:00 00:00:00 JUDY avelary o f [facility] 2021-02-23 2021-02-23 Hospital Radiology [facility] 1.2.840.114 [id number] Univers 08:20:00 23:59:00 Encounter Lucina 350.1.13.10 ity [facility] 4.2.7.2.686 [place] [phone] [facility] [address] [place] 2021-02-23 2021-02-23 Outpatient R RADIOLOGY [facility] [id number] Univers 00:00:00 00:00:00 ity of [facility] 2021-02-15 2021-02-15 Office [facility] 1.2.840.114 [id number] Univers 08:51:00 09:16:31 Visit Judy Verdugo 350.1.13.10 ity [facility] 4.2.7.2.[place] [phone] Ny dical nal 059 [facility] 2021-02-15 2021-02-15 Outpatient [facility] [id number] Univers 09:00:00 09:00:00 JUDY snyder o f [facility] 2021-01-12 2021-01-12 Pot Operator Dieudonne, Cyndy Lab Main [facility] 1.2.8 40.114 [id number] Univers 08:41:22 08:56:22 Visit Janel Ledbetter 350.1.13.10 ity of [place] 4.2.7.2.[place] [phone] Ny dical nal 353 [facility] 2021-01-12 2021-01-12 Outpatient R DENISE [facility] [id number] Univers 08:45:00 08:45:00 JANEL ity of [facility] 2021-01-12 2021-01-12 Orders Doctor ANAHI 1.2.840.114 [id number] Univers 00:00:00 00:00:00 Only Unassigned, MARLA 350.1.13.10 ity of [place] [facility] 4.2.7.2.686 Mikal as [phone] [address] 2020-12-16 2020-12-16 Outpatient R MAVERICK [facility] [id number] Univers 10:15:00 10:15:00 MIGUEL itoliver [facility] 2020-12-16 2020-12-16 Pot Operator Posebastien, Adc Lab Main [facility] 1.2.8 40.114 [id number] Univers 09:03:30 09:18:30 Visit Miguel Temple 350.1.13.10 ity of [place] 4.2.7.2.[place] [phone] Ny dical nal [address] [place] [address] 2020-12-16 2020-12-16 Orders Doctor ANAHI 1.2.840.114 [id number] Univers 00:00:00 00:00:00 Only Unassigned, MARLA 350.1.13.10 ity of [place] [facility] 4.2.7.2.686 Mikal as [phone] [address] 2020-11-24 2020-11-24 Pot Operator Lab, Adc Fam Pob I [facility] 1.2. 840.114 [id number] Univers 08:07:54 08:27:54 Visit Jan [facility] 350.1.13.10 ity of [place] 4.2.7.2.686 Mikal as Professio [phone] Ny dical nal [address] [place] [address] One 2020-11-24 2020-11-24 Outpatient R JAN [facility] [id number] Univers 08:20:00 08:20:00 KYLIE snyder o f [facility] 2020-11-23 2020-11-23 Office [facility] 1.2.840.114 [id number] Univers 09:56:05 10:39:01 Visit [facility] 350.1.13.10 i ty of [place] 4.2.7.2.686 Mikal as Professio [phone] [address] Office [facility] One 2020-11-23 2020-11-23 Outpatient R JAN [facility] [id number] Univers 10:00:00 10:00:00 KYLIE itoliver o f [facility] 2020-11-23 2020-11-23 Pre Visit [facility] 1.2.945.195 [id number] Univers 00:00:00 00:00:00 Outreach [facility] 350.1.13.10 i ty of [place] 4.2.7.2.686 Mikal as Professio [phone] [address] One 2020-10-12 2020-10-12 Outpatient Zach [facility] [id number] Univers 07:50:00 07:50:00 JAMA ity of [facility] 2020-10-01 2020-10-01 Telephone [facility] 1.2.973.113 [id number] Univers 00:00:00 00:00:00 [facility] 350.1.13.10 it y of [place] 4.2.7.2.686 Mikal as Professio [phone] [address] One 2020-09-17 2020-09-17 Telephone [facility] 1.2.660.947 [id number] Univers 00:00:00 00:00:00 [facility] 350.1.13.10 it y of [place] 4.2.7.2.686 Mikal as Professio [phone] [address] Office [facility] One 2020-09-16 2020-09-16 Orders Doctor ANAHI 1.2.840.114 [id number] Univers 00:00:00 00:00:00 Only Unassigned, MARLA 350.1.13.10 ity of [place] [facility] 4.2.7.2.686 Mikal as [phone] [address] 2020-09-14 2020-09-14 Outpatient [facility] [id number] Univers 14:50:00 14:50:00 JAMA ity of [facility] 2020-08-18 2020-08-18 Office [facility] 1.2.840.114 [id number] Univers 13:40:48 14:35:42 Visit Judy Verdugo 350.1.13.10 ity of [place].2.[place] [phone] Ny dical nal 059 [facility] 2020-08-18 2020-08-18 Outpatient [facility] [id number] Univers 13:20:00 13:20:00 CORWINANJANA valentinoy o f [facility] 2020-08-18 2020-08-18 Refill [facility] 1.2.840.114 [id number] Univers 00:00:00 00:00:00 Judy Verdugo 350.1.13.10 ity of [place] 4[place].2.[place] [phone] Ny dical david 059 [facility] 2020-07-21 2020-07-21 Pot Operator Dieudonne, Adc Lab Main [facility] 1.2.8 40.114 [id number] Univers 09:12:06 09:27:06 Visit Janel Ledbetter 350.1.13.10 ity of [place] 4[place].7.2.[place] [phone] Ny denisseal nal 353 [facility] 2020-07-21 2020-07-21 Outpatient R DENISE [facility] [id number] Univers 09:15:00 09:15:00 MANAF ity of [facility] 2020-07-21 2020-07-21 Orders Doctor CHRISTIAN 1.2.840.114 [id number] Univers 00:00:00 00:00:00 Only Unassigned, MARLA 350.1.13.10 ity of [facility] 4.2.7.2.686 Mikal as [phone] [address] 2020-06-10 2020-06-10 Pot Operator Dieudonne, Adc Lab Main [facility] 1.2.8 40.114 [id number] Univers 08:20:12 08:35:12 Visit Alroumoh, Manaf A [place] 350.1.13.10 ity of [place] 4.2.7.2.[place] [phone] [address] 2020-06-10 2020-06-10 Outpatient R DENISE [facility] [id number] Univers 08:15:00 08:15:00 MANAF ity [facility] 2020-06-10 2020-06-10 Orders Doctor ANAHI 1.2.840.114 [id number] Univers 00:00:00 00:00:00 Only Unassigned, MARLA 350.1.13.10 ity of [place] [facility] 4.2.7.2.686 Mikal as [phone] [address] 2020-04-28 2020-04-28 Outpatient [facility] [id number] [facility] 08:45:00 08:45:00 MANAF ity [facility] 2020-04-28 2020-04-28 Pot Operator Dieudonne, Adc Lab Main [facility] 1.2.8 40.114 [id number] [facility] 08:26:25 08:41:25 Visit Janel Ledbetter [place] 350.1.13.10 ity of [place] 4[place].2.[place] [phone] [address] 2020-04-28 2020-04-28 Orders Doctor CHRISTIAN 1.2.840.114 [id number] Univers 00:00:00 00:00:00 Only Unassigned, MARLA 350.1.13.10 ity of [place] [facility] 4.2.7.2.686 Mikal as [phone] [address] 2020-03-16 2020-03-16 Pot Operator Dieudonne, [facility] 1.2.8 40.114 [id number] Univers 09:15:17 09:30:17 Visit Janel Ledbetter [facility] [id number] [id number] [phone] [address] 2020-03-16 2020-03-16 Outpatient [facility] [id number] Univers 09:15:00 09:15:00 MANAF ity of [facility] 2020-03-16 2020-03-16 Orders Doctor ANAHI 1.2.840.114 [id number] Univers 00:00:00 00:00:00 Only Unassigned, MARLA [id number] ity of [place] [facility] [id number] Mikal as [phone] [address] 2020-02-19 2020-02-19 Outpatient R RADIOLOG[facility] [id number] Univers 00:00:00 00:00:00 ity of [facility] 2020-02-19 2020-02-19 Orders Doctor ANAHI 1.2.840.114 [id number] Univers 00:00:00 00:00:00 Only Unassigned, MARLA [id number] ity of [place] [facility] [id number] Mikal as [phone] [address] 2020-01-27 2020-01-27 Pot Operator Dieudonne, Adc Lab Main [facility] 1.2.8 40.114 [id number] Univers 09:20:01 09:35:01 Visit Janel Ledbetter [id number] [id number] [phone] [address] 2020-01-27 2020-01-27 Outpatient R DENISE [facility] [id number] Univers 09:15:00 09:15:00 MANAF ity of [facility] 2020-01-27 2020-01-27 Orders Doctor CHRISTIAN 1.2.840.114 [id number] Univers 00:00:00 00:00:00 Only Unassigned, MARLA [id number] ity of [place] [facility] [id number] Mikal as [phone] [address] 2020-01-12 2020-01-12 Outpatient R [facility] [id number] Univers 08:00:00 08:00:00 ity of [facility] 2020-01-09 2020-01-09 Pot Operator Dieudonne, Adc Lab Main [facility] 1.2.8 40.114 [id number] Univers 08:06:54 08:21:54 Visit Judy Reeves [id number] [id number] [phone] Ny dical nal 353 [facility] 2020-01-09 2020-01-09 Outpatient [facility] [id number] Univers 08:15:00 08:15:00 JUDY snyder o f [facility] 2020-01-09 2020-01-09 Telephone [facility] [id number] Univers 00:00:00 00:00:00 Judy Verdugo [id number] [id number] [phone] [address] 2020-01-01 2020-01-01 Telephone [facility] 1.2.810.951 [id number] Univers 00:00:00 00:00:00 Corwinanjana [place] [id number] it[id number] [phone] Ny dical nal 9 [facility] 2019-12-29 2019-12-29 Outpatient R [facility] [id number] Univers 09:40:00 09:40:00 JUDY snyder o ahsan [facility] 2019-12-29 2019-12-29 Telemedici [facility] 1.2.840.114 [id number] Univers 08:02:40 08:22:40 ne Visit Besshildaanjana Lucina [id number] [id number] [phone] Ny dical nal 059 [facility] 2019-11-26 2019-11-26 Pot Operator Dieudonne, Cyndy Lab Main [facility] 1.2.8 40.114 [id number] Univers 08:20:57 08:35:57 Visit Janel Ledbetter [id number] it[id number] [phone] Ny dical nal 353 [facility] 2019-11-26 2019-11-26 Outpatient R DENISE [facility] [id number] Univers 08:15:00 08:15:00 JANEL snyder [facility] 2019-11-26 2019-11-26 Orders Doctor ANAHI 1.2.840.114 [id number] Univers 00:00:00 00:00:00 Only Unassigned, MARLA [id number] ity of [place] [facility] [id number] [place]al as [phone] [address] 2019-10-01 2019-10-01 Pot Operator Dieudonne, Adc Lab Main [facility] 1.2.8 40.114 [id number] Univers 09:12:05 09:27:05 Visit Janel Ledbetter [id number] [id number] [phone] Ny dic[address] 2019-10-01 2019-10-01 Orders Doctor CHRISTIAN 1.2.840.114 [id number] Univers 00:00:00 00:00:00 Only Unassigned, MARLA [id number] ity of [place] [facility] [id number] [place]al as [phone] [address] 2019-09-03 2019-09-03 Pot Operator Dieudonne, Adc Lab Main [facility] 1.2.8 40.114 [id number] Univers 10:18:13 10:33:13 Visit Janel Ledbetter [id number] it[place] [phone] [address] 2019-09-03 2019-09-03 Orders Doctor CHRISTIAN 1.2.840.114 [id number] Univers 00:00:00 00:00:00 Only Unassigned, MARLA [id number] ity of [place] [facility] [id number] [place]al as [phone] [address] 2019-07-19 2019-07-19 Emergency X DANTE [facility] ERT [id number] Univers 08:44:34 10:52:00 MAGI snyder [facility] 2019-04-17 2019-04-17 Pot Operator 1, Adc Lab [facility] 1.2.840.114 [id number] Univers 08:12:09 08:27:09 Visit Janel Ledbetter Kieran Verdugo [id number] [place] [phone] [facility] [address] 2019-04-17 2019-04-17 Orders Doctor ANAHI 1.2.840.114 [id number] Univers 00:00:00 00:00:00 Only Unassigned, MARLA [id number] ity of [place] [facility] [id number] Mikal as [phone] [facility] [address] 2019-04-01 2019-04-01 Telephone Ayo [facility] 1.2.740.951 [id number] Univers 00:00:00 00:00:00 [facility] [id number] it y of [place] [id number] [place]al [place] Professio [phone] [address] [facility] [address] [facility] 2019-03-31 2019-03-31 Pot Operator Lab, Adc Fam Pob I [facility] 1.2. 840.114 [id number] Univers 08:00:03 08:41:42 Visit Michelle Ledezma [id number] ity of [place] [id number] [place] Professio [phone] [address] [facility] 2019-03-20 2019-03-20 Office RITA Yuen 1.2.324.124 [id number] Univers 13:28:06 20:42:57 Visit Kayden Y [employer] 350.1.13.10 i ty of [facility] [id number] [phone] [facility] [address] 2019-03-17 2019-03-17 Pot Operator 1, Adc Lab [facility] 1.2.840.114 [id number] Univers 10:15:47 10:30:47 Visit Alin Ledbetteroswaldo Kieran Lucina [id number] it[id number] [phone] [address] 2019-03-17 2019-03-17 Orders Doctor ANAHI 1.2.840.114 [id number] Univers 00:00:00 00:00:00 Only Unassigned, MARLA [id number] ity of [place] [facility] [id number] [place] as [phone] [facility] [address] Results This patient has no known results.
[2022-05-29] MEDS: HYDROMORPHONE HCL 1 MG/ML INJ ONE ×3 (17:24→17:38)
[2022-05-29 17:45] VITALS: O2SAT 98
[2022-05-29] MEDS: Ringers Lactate 1,000 ML IV SCH (18:15)
[2022-05-29] MEDS: MORPHINE 2 MG/ML SYR IV PRN (20:08)
[2022-05-30] MEDS: MORPHINE 2 MG/ML SYR IV PRN ×3 (00:16→10:23)
[2022-05-30] MEDS: Ringers Lactate 1,000 ML IV SCH (02:21)
[2022-05-30 05:23] LABS: Absolute Lymphocytes (CBC) 1.5 K/uL (0.7-4.9); Hematocrit 28.9 % (36.0-45.0); Lymphocytes % 19.8 % (15.3-44.8); MCV 89.5 fL (80-100); MPV 8.3 fL (7.6-11.3); RBC Red Blood Cell Count 3.23 M/uL (3.86-4.86)
[2022-05-30 07:39] VITALS: BP 99/50; TEMP 98.7
[2022-05-30] MEDS ORDERED: DOCUSATE NA 100 MG CAP PO SCH (09:00)
[2022-05-30] MEDS ORDERED: LACTOBACILLUS/ACIDOPHILUS TAB PO SCH (09:00)
[2022-05-30] MEDS ORDERED: FAMOTIDINE 20 MG TAB PO SCH (09:00)
[2022-05-30] MEDS ORDERED: FAMOTIDINE 20 MG TAB ONE (09:47)
--- NOTE | 2022-05-31 09:40 | OP ---
Date of Procedure: 05/29/2022 Surgeon: Kimberly Fall MD Md Psychiatry: Suri Tate. Preoperative Diagnoses: Stage III anterior wall apical prolapse, posterior wall prolapse and stress urinary incontinence (stage III incomplete uterovaginal prolapse and stress urinary incontinence). Postoperative Diagnoses: Stage III anterior wall apical prolapse, posterior wall prolapse and stress urinary incontinence (stage III incomplete uterovaginal prolapse and stress urinary incontinence). Procedures Performed: 1.Laparoscopic bilateral salpingo-oophorectomy. 2.Laparoscopic sacral colpopexy with Upsylon Y-mesh. 3.Posterior repair with perineorrhaphy. 4.Transobturator tension-free mid urethral sling (TVT-O). 5.Cystoscopy. Ebl: 100. Urine Output: 100. Fluids: 1700. Specimens: Bilateral tubes and ovaries. Findings: POP-Q 0, +2, 0, 5 moderate, 6, -1, -1. Anesthesia: General endotracheal. Complication: No complication. Drains: Mcarthur catheter. Condition: Stable, transferred to the recovery room . Indications: The patient is a 67-year-old female who presented with symptoms of prolapse and she was evaluated with a transvaginal ultrasound with no evidence of any abdominal pathology and no adnexal masses were noted. She had urodynamic test in the office for checking voiding dysfunction. She had a good void without any residual. Her bladder pressure . Her maximal urethral closure pre ssure was only 36 and when prolapse were reviewed, during that she was asked to Valsalva, she had a l eak. So there was definitely presence of occult stress urinary incontinence. We discussed all the d ifferent options including management of pessary and surgery. The patient preferred to proceed with surgery to have prolapse repair. Discussed about both abdominal and vaginal options and graft augmen raulito biologic, vaginal repair of anterior compartment and apex versus anteroposterior apical compartme nt and mesh graft augmented repair. Comparison of benefits and risks of each procedure were reviewed with the patient along with the recurrence rate and the risks unique to mesh and mesh related repair were discussed with her. She wanted the procedure that would give her long lasting results with michael st recurrence and this was a sacral colpopexy and so she was then consented for a laparoscopic sacral colpopexy followed by a transobturator mid urethral sling to treat her stress incontinence. Description Of Procedure: After informed consent was verified, she was taken back to the OR. Preope ratively all the questions were answered. The patient had a partial vaginal hysterectomy and bladder suspension in 1997. Her symptoms have relapsed since then. After she was taken back and placed in supine fashion on the operating table, general anesthesia was given. She was placed in dorsal lithotomy position using Froylan stirrups. Lower abdomen, vulva, vagi na, and perineum were prepped and draped in a sterile fashion. The arms were tucked by the side. SC Ds were started. Time-out was done after positioning was checked. ChloraPrep was used on the abdomen and Betadine for the lower part. After placing a Mcarthur for draina ge and retrograde filling, vaginal manipulator was introduced into the vagina and this area was drape d. A 1 cm supraumbilical incision was made with a scalpel using the open laparoscopy technique. Fas bertha was incised and tagged with 0 Vicryl sutures. Peritoneum entered sharply. Waylon introduced and after adequate insufflation, site of entry was checked and was unremarkable. The patient was placed in T bag. 10 suprapubic and two 8 ports in the right and left lower quadrant were placed. The epip loicae of the sigmoid colon was picked up with 3-0 Monocryl suture and brought out through a Milton-T homason in left upper quadrant for retraction. The sacral promontory was well visualized and ___. Both tubes and ovaries were seen at this time, the patient is 67 without any function and havin g the surgery, so proceeded to remove the tubes and ovaries for prevention of cancer risk. LigaSure was used after identifying the base of the IP and checking the position of the ureter. The IP ligament was taken down with the help of the LigaSure and the tube and ovary were removed from eac h side and sent off for permanent pathology. Using the Mobile Bridge manipulator, the anterior vaginal wall was lifted. The bladder was retra cted inferiorly and incision made sharply with scissors right at the cuff and the incision extended a ll the way from one end of the cuff to other end. The bladder was dissected after picking up with 2 pairs of atraumatic graspers and tenting up the bladder from the anterior vaginal wall using hand ret raction from the vaginal manipulator. The anterior wall was exposed at least a 3.5 cm. Once this wa s done adequately without damaging the base of the bladder and staying away from the ureteric orifice s, the anterior vaginal wall was sufficiently exposed . The posterior wall was then dissec raulito staying in the plane between the vagina and the rectum. One third of the lid was the vaginal wal l and leaving 2/3rd of the tissue towards the rectum and dropping this down. Once this was done all the way down to 6 cm around the apex posteriorly, dissection was stopped and the lateral pat were v terese well exposed, which almost reflection of the rectum. Peritoneum picked up at the sacral promontory and dissected with scissors all the way to the medial a spect of the uterosacral ligament going across through the right pararectal space and connecting to t he posterior dissection. Once this was done, care was taken to stretch the peritoneal edges out so t he skin was mobilized and closed. The mesh was placed and the patient's ureter and iliac vessels wer e also identified and the rectum as well. Coming to sacral promontory, all the resected tissue was dissected till the anterior longitudinal lig ament was well exposed. The middle sacral vessels were cauterized with . Then once all th is was exposed, the mesh was cut to 5.5 cm anteriorly and 8 cm posteriorly. The anterior wall of the mesh was sutured to the sacral arm with a silk suture. Then 2-0 V-Loc was then used in the distal m idline and this was placed on the graft and then sutured in place the vaginal connective t issue. Once this was done, the mesh was pulled in across the posterior wall and the lateral sutures distally were 2-0 Prolene. Care was taken not to pass through the vaginal epithelium when these sutu res were placed and knot was tied down along with mesh. The mesh was at the distal part. Then laying this down anteriorly, the Prolene suture was removed from the anterior wall and was sutu red in the midline with a 2-0 V-Loc. Once this was done with the help of 2 Prolene suture s, one on each side distally. Then 2 more 2-0 V-Locs were placed, one on each side closer to the ape x and anterior wall and then similarly two more V-Locs in the posterior wall were placed o ne on each side and they were both secured. Once a 5 point fixation was secured I went ah ead and took the sacral arm, placed it in the position that seemed apt for this patient and took the vaginal manipulator out, checked the prolapse reduction, which was excellent and without too much ten luciano on the graft. So the sacral arm was secured with the help of Ethibond on a CT1 needle. Once Et hibond suture was placed x2 and tied down, this was passed through the graft and tied. Initially I t ried the [place]-Mikal suture, but this was difficult in terms of the needle turning and entering longitud inally so this was discarded. epithelial closure on the peritoneum was started with a help of 2-0 V-Loc in a continuous running fashion all the way . I proceeded to close the fascial incision closed with the help of interrupted 4-0 Monocryl . The suture placed in the bowel was released and bowel was hemostatic. After skin incisions were closed with interrupted 4-0 Vicryl sutures, then I went down and started th e sling. on both sides. The incision was made 1 cm in the mid urethral area. The flaps were raised carefully keeping it big enough and not letting the prior scar from her bladder repair co me in the way. There seemed to be a significant tether in the right lateral opened up. T here was a significant amount of bleeding. So pressure was held against the inferior pubic ramus and dissection performed on the left side there was no significant bleeding on the contralate ral side. The TVT-O kit was opened. The wing guide was taken and placed through the left side into the obturator space and then the spike as well as the plastic dilator were passed through and the spi ke pulled out . Once I went on the opposite side, the wing guide was placed again and the plastic dilator was then pa ssed. The bleeding had significantly slowed down. So once this was past the obturator membrane, the wing guide was removed and on the contralateral side. The plastic dilators were pulled out. Sheath and mesh were held with Maryellen clamp. Tensioning was do ne with the help of was brought flush with the urethra in the center and then went ahead a nd the pulled the plastic sheath continuous running 3-0 Vicryl suture. Cystoscopy was per formed. The Mcarthur was removed. There was a slight amount of bulge likely from the hematoma on the l ateral periurethral space and the space was . There was no evidence of mesh here, just a b luish hue from the hematoma. The 30 degree lens was changed to 70 degree for better visualization of this area. The plan was to remove it; however, this was clearly consistent with a hematoma that was on the lateral aspect of the bladder. So once the bladder was drained, . Midline incisions with the help of . Posterior wall was dissected by holding the hymenal area and the peritoneum. A amarjit-sh aped incision was made in the distal posterior one third of the wall. I visualized the perineum then and it did not have a significant perineal body defect. So went down to the side of the vaginal epi thelium attachment. Here 2-0 Vicryl was used to interrupt and close the defect in the ___ . Once this was done, there was no need to trim the vaginal epithelium and it was closed with the help of a continuous running 2-0 Vicryl suture and . Rectal exam negative. The patie nt was recovered from anesthesia and taken to PACU in stable condition. Her family debriefed about h er procedure. She and discharged home tomorrow. I plan to keep the Mcarthur for at least 3 days and to have voiding trial at that time to allow for recovery of the bladder function. I will po ssibly repeat cystoscopy in this patient to ensure that the sling has healed up well and the hematoma has healed as well. She will have followup on her hemoglobin and oral iron as needed. PATRICK/LG Voice ID: [id number] Report ID: [id number]
== END 2022-05-30 12:10 | disposition home or self-care (01) ==
LOC: OR 10:20 → 2ND-WC 16:59
PROVIDERS: ADMIT Obstetrics & Gynecology; ATTEND Obstetrics & Gynecology
PROC: 0UT24ZZ Resection of Bilateral Ovaries, Percutaneous Endoscopic Approach (ICD-10-PCS; 2022-05-29)
PROC: 0UT74ZZ Resection of Bilateral Fallopian Tubes, Percutaneous Endoscopic Approach (ICD-10-PCS; 2022-05-29)
PROC: 0TSD0ZZ Reposition Urethra, Open Approach (ICD-10-PCS; 2022-05-29)
PROC: 0JQC0ZZ Repair Pelvic Region Subcutaneous Tissue and Fascia, Open Approach (ICD-10-PCS; 2022-05-29)
PROC: 0HQ9XZZ Repair Perineum Skin, External Approach (ICD-10-PCS; 2022-05-29)
PROC: 0USG7ZZ Reposition Vagina, Via Natural or Artificial Opening (ICD-10-PCS; principal; 2022-05-29 11:30)
DX: N99.3 Prolapse of vaginal vault after hysterectomy (principal); N39.3 Stress incontinence (female) (male); N95.2 Postmenopausal atrophic vaginitis; N04.9 Nephrotic syndrome with unspecified morphologic changes; Z20.822 Contact with and (suspected) exposure to COVID-19
CPT/HCPCS: 36415; 80048; 81003; 85025; 85610; 85730; 86850; 86900; 86901; 87811; 88305; A4216; G0378; G0379; J0690; J1100; J1170; J2001; J2250; J2270; J2405; J2704; J2710; J3010; J7030; J7120